=== PATIENT | female | born 1995 | race Caucasian/White ===

== ENCOUNTER → 2018-09-20 | Outpatient (CLI) | payer BC ==
[2018-09-20 16:43] LABS: BASOPHILS % 0.6 % (0.0-2.0); EOSINOPHILS % 1.7 % (0.0-5.0); HEMATOCRIT. 37.8 % (36.0-48.0); HEMOGLOBIN. 13.4 g/dL (12.0-16.0); LYMPHOCYTES % 24.3 % (20.0-50.0); MEAN CORPUSCULAR HEMOGLOBIN 30.6 pg (28.0-32.0); MEAN CORPUSCULAR VOLUME 86.6 fL (81.0-99.0); MEAN PLATELET VOLUME 9.4 fl (7.4-10.4); NEUTROPHILS % 67.4 % (40.0-76.0); PLATELET 195 x1000/uL (130-400); RED BLOOD CELL COUNT 4.36 mill/uL (4.2-5.4); RED CELL DISTRIBUTION WIDTH 12.2 % (11.6-14.6)
[2018-09-20 16:51] LABS: CLARITY URINE CLEAR (CLEAR); COLOR URINE YELLOW (YELLOW); KETONES URINE NEGATIVE (NEGATIVE); LEUKOCYTE ESTERASE URINE NEGATIVE (NEGATIVE); NITRITE URINE NEGATIVE (NEGATIVE); OCCULT BLOOD URINE NEGATIVE (NEGATIVE); PH URINE 7.5 (4.5-8.0); PROTEIN URINE NEGATIVE (NEGATIVE); SPECIFIC GRAVITY URINE 1.018 (1.005-1.030); UROBILINOGEN URINE 0.2 E.U./dL (0.2-1.0)
[2018-09-20 16:57] LABS: CHLORIDE 104 mEq/L (98-107)
[2018-09-20 17:05] LABS: LDL CHOLESTEROL 109 mg/dL (5-100)
[2018-09-20 17:06] LABS: HDL CHOLESTEROL 69 mg/dL (40-59); TOTAL IRON BINDING CAPACITY 320 ug/dL (250-450)
[2018-09-20 17:17] LABS: FERRITIN 49 ng/mL (10-291); HEPATITIS B SURFACE AB 17.3 mIU/mL
[2018-09-20 17:28] LABS: HEPATITIS B SURFACE ANTIGEN NEGATIVE
[2018-09-20 17:31] LABS: VITAMIN B12 SERUM 586 pg/mL (211-911)
[2018-09-20 17:57] LABS: HEPATITIS A AB IGM NEGATIVE (NEGATIVE)
[2018-09-22 04:15] LABS: HIV SCREEN 4G Non Reactive (Non Reactive)
[2018-09-23 06:14] LABS: CHLAMYDIA TRACHOMATIS NAA Negative (Negative); NEISSERIA GONORRHOEAE NAA Negative (Negative)
== END | disposition home or self-care (01) ==
LOC: LAB 15:46
PROVIDERS: ATTEND Internal Medicine Geriatric Medicine
DX: N39.0 Urinary tract infection, site not specified (principal)
CPT/HCPCS: 36415; 80061; 81003; 82607; 82728; 83540; 83550; 84443; 86592; 86705; 86706; 86709; 86803; 87340; 87389; 87491; 87591

== ENCOUNTER 2020-11-20 08:29 | Emergency (ER) | payer BC ==
[~2020-11-20] VITALS: Ht 162.6 cm; Wt 77.0 kg
[2020-11-20 08:57] VITALS: BP 129/79
[2020-11-20] MEDS ORDERED: HC A30CR10 RC (09:03)
[2020-11-20] MEDS ORDERED: HYDR120L TP (09:15)
== END 2020-11-20 09:29 | disposition home or self-care (01) ==
LOC: ER 08:29
DX: L30.9 Dermatitis, unspecified (principal)
CPT/HCPCS: 99282

== ENCOUNTER → 2020-11-20 | Outpatient (CLI) | payer BC ==
[~2020-11-20] MED LIST: HC A30CR10 RC; HYDR120L TP
[2020-11-20 10:11] LABS: BASOPHILS % 0.7 % (0.0-2.0); EOSINOPHILS % 2.4 % (0.0-5.0); HEMOGLOBIN. 13.4 g/dL (12.0-16.0); LYMPHOCYTES % 28.7 % (20.0-50.0); MEAN CORPUSCULAR HEMOGLOBIN 29.9 pg (28.0-32.0); MONOCYTES % 8.1 % (2.0-8.0); NEUTROPHILS % 60.1 % (40.0-76.0); PLATELET 168 x1000/uL (130-400); RED CELL DISTRIBUTION WIDTH 12.1 % (11.6-14.6)
[2020-11-20 10:19] LABS: CHLORIDE 107 mEq/L (98-107)
[2020-11-20 10:28] LABS: LDL CHOLESTEROL 107 mg/dL (5-100); TOTAL IRON BINDING CAPACITY 316 ug/dL (250-450)
[2020-11-20 10:29] LABS: HDL CHOLESTEROL 67 mg/dL (40-59)
[2020-11-20 10:44] LABS: CLARITY URINE CLOUDY (CLEAR); COLOR URINE YELLOW (YELLOW); KETONES URINE NEGATIVE (NEGATIVE); LEUKOCYTE ESTERASE URINE TRACE (NEGATIVE); NITRITE URINE NEGATIVE (NEGATIVE); OCCULT BLOOD URINE TRACE (NEGATIVE); PROTEIN URINE NEGATIVE (NEGATIVE); UROBILINOGEN URINE 0.2 E.U./dL (0.2-1.0)
[2020-11-20 17:40] LABS: FERRITIN 33 ng/mL (10-291)
[2020-11-21 06:11] LABS: HIV SCREEN 4G Non Reactive (Non Reactive); VITAMIN D 25-OH 19.4 ng/mL (30.0-100.0)
[2020-11-22 07:08] LABS: NEISSERIA GONORRHOEAE NAA Negative (Negative)
[2020-11-23 01:40] LABS: VITAMIN B12 SERUM 459 pg/mL (211-911)
== END | disposition home or self-care (01) ==
LOC: LAB 09:04
PROVIDERS: ATTEND Internal Medicine Geriatric Medicine
DX: Z00.01 Encounter for general adult medical examination with abnormal findings (principal); N39.0 Urinary tract infection, site not specified
CPT/HCPCS: 36415; 80053; 80061; 81003; 82306; 82607; 82728; 83540; 83550; 84443; 85025; 86592; 87389; 87491; 87591

== ENCOUNTER → 2023-03-22 | Outpatient (CLI) | payer BC ==
[~2023-03-22] MED LIST changes: -HC A30CR10 RC
[2023-03-22 12:05] LABS: BASOPHILS % 0.6 % (0.0-2.0); CLARITY URINE CLEAR (CLEAR); COLOR URINE YELLOW (YELLOW); EOSINOPHILS % 2.4 % (0.0-5.0); GLUCOSE URINE NEGATIVE (NEGATIVE); HEMATOCRIT. 36.2 % (36.0-48.0); HEMOGLOBIN. 12.9 g/dL (12.0-16.0); KETONES URINE NEGATIVE (NEGATIVE); LEUKOCYTE ESTERASE URINE NEGATIVE (NEGATIVE); LYMPHOCYTES % 27.5 % (20.0-50.0); MEAN CORPUSCULAR HEMOGLOBIN 30.9 pg (28.0-32.0); MEAN CORPUSCULAR HGB CONC 35.6 g/dL (31.0-37.0); MEAN CORPUSCULAR VOLUME 86.8 fL (81.0-99.0); MEAN PLATELET VOLUME 8.8 fl (7.4-10.4); MONOCYTES % 6.8 % (2.0-8.0); NEUTROPHILS % 62.7 % (40.0-76.0); NITRITE URINE NEGATIVE (NEGATIVE); OCCULT BLOOD URINE NEGATIVE (NEGATIVE); PH URINE 7.5 (4.5-8.0); PLATELET 214 x1000/uL (130-400); PROTEIN URINE NEGATIVE (NEGATIVE); RED BLOOD CELL COUNT 4.17 mill/uL (4.2-5.4); RED CELL DISTRIBUTION WIDTH 12.2 % (11.6-14.6); SPECIFIC GRAVITY URINE 1.022 (1.005-1.030); UROBILINOGEN URINE 0.2 E.U./dL (0.2-1.0); WHITE BLOOD COUNT 7.9 x1000/uL (4.5-11.0)
[2023-03-22 12:34] LABS: ALANINE AMINOTRANSFERASE 12 IU/L (10-49); ALBUMIN 4.6 g/dL (3.2-4.8); ASPARTATE AMINOTRANSFERASE 15 IU/L (<34); BILIRUBIN TOTAL 0.3 mg/dL (0.1-1.0); CALCIUM 8.9 mg/dL (8.7-10.4); CARBON DIOXIDE 25 mEq/L (21-32); CHLORIDE 107 mEq/L (98-107); CHOLESTEROL 152 mg/dL (<200); CREATININE 0.6 mg/dL (0.6-1.0); GLUCOSE 92 mg/dL (70-105); HDL CHOLESTEROL 53 mg/dL (>65); IRON 51 ug/dL (50-170); LDL CHOLESTEROL 93 mg/dL (5-100); POTASSIUM 3.7 mEq/L (3.5-5.1); PROTEIN TOTAL 7.6 g/dL (6.0-8.3); SODIUM 137 mEq/L (136-145); TOTAL IRON BINDING CAPACITY 217 ug/dl (250-425); TRIGLYCERIDE 45 mg/dL (0-150); UREA NITROGEN BLOOD 14 mg/dL (9-23)
[2023-03-22 17:13] LABS: FERRITIN 49 ng/mL (10-291); VITAMIN B12 SERUM 423 pg/mL (211-911)
== END | disposition home or self-care (01) ==
LOC: LAB 08:08
PROVIDERS: ATTEND Internal Medicine Geriatric Medicine
DX: Z00.01 Encounter for general adult medical examination with abnormal findings (principal); Z11.3 Encounter for screening for infections with a predominantly sexual mode of transmission; N39.0 Urinary tract infection, site not specified
CPT/HCPCS: 36415; 80053; 80061; 81003; 82306; 82607; 82728; 83036; 83540; 83550; 84443; 85025; 86592; 86900; 87491; 87591